=== PATIENT | male | born 1990 | race American Indian/Alaskan Native ===

== ENCOUNTER 2016-12-17 16:57 | Emergency (ER) | payer BC, OTHER ==
[~2016-12-17] VITALS: Ht 182.9 cm; Wt 102.1 kg
[2016-12-17 17:49] VITALS: BP 132/84
[2016-12-17] MEDS ORDERED: cefTRIAXone SOD 1,000 MG VL IM ONE (18:00)
[2016-12-17] MEDS ORDERED: methylPREDNISolone SOD SUCC 125 MG/2 ML VL IM ONE (18:00)
== END 2016-12-17 18:27 | disposition home or self-care (01) ==
LOC: ER 16:57
DX: J03.90 Acute tonsillitis, unspecified (principal)
CPT/HCPCS: 96372; 99284; J0696; J2930